=== PATIENT | female | born 1940 | race Caucasian/White ===

== ENCOUNTER 2016-09-28 16:27 | Emergency (ER) | payer MEDICARE, OTHER ==
[2017-01-14] MEDS ORDERED: LEVOTHYROXINE75 MCG PO (08:25)
[2017-01-14] MEDS ORDERED: COREG12.5 MG PO ×2 (08:25→08:26)
[2017-01-14] MEDS ORDERED: LIPITOR20 MG PO (08:26)
[2017-01-14] MEDS ORDERED: PROTONIX 40MG T40 MG PO (08:26)
[2017-01-14] MEDS ORDERED: NEURONTIN400 MG PO (08:26)
[2017-01-14] MEDS ORDERED: VICTOZA (08:27)
[2017-01-20] MEDS ORDERED: TRESIBA FL100 UNIT/1 SC (08:24)
[2017-01-20] MEDS ORDERED: NOVOLOG VI100 UNIT/1 SC (08:25)
[2017-01-20] MEDS ORDERED: FIORICET1 EACH PO (08:26)
== END 2016-09-28 18:56 | disposition home or self-care (01) ==
LOC: FER 16:27
DX: S62.101A Fracture of unspecified carpal bone, right wrist, initial encounter for closed fracture (principal); E11.9 Type 2 diabetes mellitus without complications; Z88.1 Allergy status to other antibiotic agents; Z79.4 Long term (current) use of insulin; W01.0XXA Fall on same level from slipping, tripping and stumbling without subsequent striking against object, initial encounter; Y92.007 Garden or yard of unspecified non-institutional (private) residence as the place of occurrence of the external cause
CPT/HCPCS: 73090; 73110; 73130

== ENCOUNTER → 2016-10-02 | Day surgery (SDC) | payer MEDICARE, OTHER ==
[~2016-10-02] MED LIST: COREG12.5 MG PO; FIORICET1 EACH PO; LEVOTHYROXINE75 MCG PO; LIPITOR20 MG PO; NEURONTIN400 MG PO; NOVOLOG VI100 UNIT/1 SC; PROTONIX 40MG T40 MG PO; TRESIBA FL100 UNIT/1 SC; VICTOZA
[2016-10-02 08:45] LABS: HGB 11.9 g/dl (12.5-16.0); MCH 30.9 pg (25.0-31.0); MCHC 32.2 g/dL (32.0-36.0); MCV 96.1 fL (78.0-100.0); MPV 12.2 fL (6.0-9.5); RBC 3.85 M/uL (4.20-5.40); RDW 13.8 % (11.5-14.0); WBC 7.8 K/uL (4.0-10.5)
[2016-10-02 09:11] LABS: CREATININE 0.5 mg/dL (0.5-1.0)
== END | disposition home or self-care (01) ==
LOC: FAS 07:53
PROVIDERS: Legal Medicine
DX: S52.571A Other intraarticular fracture of lower end of right radius, initial encounter for closed fracture (principal); W19.XXXA Unspecified fall, initial encounter; K21.9 Gastro-esophageal reflux disease without esophagitis; E11.9 Type 2 diabetes mellitus without complications; E03.9 Hypothyroidism, unspecified; J45.909 Unspecified asthma, uncomplicated; Z88.1 Allergy status to other antibiotic agents; Z90.81 Acquired absence of spleen; Z98.51 Tubal ligation status; Z79.4 Long term (current) use of insulin; Z79.51 Long term (current) use of inhaled steroids; Z79.899 Other long term (current) drug therapy; Z98.890 Other specified postprocedural states
CPT/HCPCS: 36415; 73100; 76000; 80048; C1713; J2704; J2795; J3010